=== PATIENT | female | born 1960 | race Caucasian/White ===

== ENCOUNTER 2017-03-26 10:52 | Outpatient (RCR) | payer OTHER ==
[2017-03-19 14:37] LABS: BASOPHILS # (AUTO) 0.1 10^3/uL (0.0-0.1); BASOPHILS % (AUTO) 1 % (0-10); EOSINOPHILS # (AUTO) 0.4 10^3/uL (0.0-0.3); EOSINOPHILS % (AUTO) 3 % (0-10); LYMPHOCYTES % (AUTO) 29 % (12-44); MEAN CORPUSCULAR HEMOGLOBIN 29 PG (25-34); MEAN CORPUSCULAR HGB CONC 33 G/DL (32-36); MEAN CORPUSCULAR VOLUME 88 FL (80-99); MEAN PLATELET VOLUME 9.2 FL (7.4-10.4); MONOCYTES # (AUTO) 0.7 X 10^3 (0.0-1.0); MONOCYTES % (AUTO) 7 % (0-12); NEUTROPHILS # (AUTO) 6.2 X 10^3 (1.8-7.8); NEUTROPHILS % (AUTO) 60 % (42-75); PLATELET COUNT 376 10^3/uL (130-400); RED BLOOD COUNT 4.66 10^6/uL (4.35-5.85); WHITE BLOOD COUNT 10.3 10^3/uL (4.3-11.0)
[2017-03-19 15:27] LABS: ALBUMIN 4.3 G/DL (3.2-4.5); BILIRUBIN,TOTAL 0.3 MG/DL (0.1-1.0); CALCIUM 9.4 MG/DL (8.5-10.1); CREATININE SERUM 0.98 MG/DL (0.60-1.30); POTASSIUM 4.5 MMOL/L (3.6-5.0); TOTAL PROTEIN 7.8 G/DL (6.4-8.2)
[~2017-03-26 10:52] MED LIST: AMLO1CAP31 PO; CITA10TA70 PO; CLAR-19 PO; CPR500T PO; GLYB5TAB6 PO; GLYBURIDE PO; HYDR-3583 PO; HYDR1TAB PO; INSU100C4 SQ; LEVO125T6 PO; LEVO175T3 PO; LEVO200T30 PO; METF-380 PO; METO50TA7 PO; METR500T PO; OMEP40CA36 PO; SULF1TAB35 PO
== END 2017-06-17 | disposition home or self-care (01) ==
LOC: ONC 10:52
PROVIDERS: ATTEND Internal Medicine Hematology & Oncology
DX: Z08 Encounter for follow-up examination after completed treatment for malignant neoplasm (principal); Z85.038 Personal history of other malignant neoplasm of large intestine; E11.9 Type 2 diabetes mellitus without complications; E03.9 Hypothyroidism, unspecified; I10 Essential (primary) hypertension; Z79.899 Other long term (current) drug therapy; Z92.21 Personal history of antineoplastic chemotherapy
CPT/HCPCS: 36415; 80053; 82378; 85025; 99213

== ENCOUNTER → 2017-08-13 | Outpatient (CLI) | payer OTHER ==
--- NOTE | 2017-08-13 17:15 | Diagnostic Imaging Report ---
PROCEDURE: US thyroid. TECHNIQUE: Multiple real-time grayscale images were obtained of the thyroid in various projections. INDICATION: Thyromegaly. FINDINGS: The right thyroid lobe is 2.2 x 0.7 x 0.8 cm. The left lobe is 3.7 x 0.9 0.9 cm. In the left thyroid lobe there is a tiny nodule measuring 0.5 x 0.3 x 0.2 cm, isoechoic with a hypoechoic rim and does not demonstrate internal vasculature with color Doppler. No other nodule is seen. IMPRESSION: Nonspecific tiny left thyroid nodule is seen measuring 5 mm, with no other nodule or dominant mass seen. Dictated by: Dictated on workstation # [id number]
== END ==
LOC: RAD 12:57
PROVIDERS: ATTEND Nurse Practitioner Family
DX: E04.1 Nontoxic single thyroid nodule (principal)
CPT/HCPCS: 76536

== ENCOUNTER → 2017-10-28 | Outpatient (CLI) | payer OTHER ==
--- NOTE | 2017-10-29 11:54 | Diagnostic Imaging Report ---
Bilateral screening mammogram 2D views with tomosynthesis The current study was also evaluated with a Computer Aided Detection (CAD) system. INDICATION: Screening. No current complaints stated on the questionnaire. COMPARISON: 10/27/2016. FINDINGS: The breasts are composed of heterogeneously dense parenchyma which may decrease mammographic sensitivity. Occasional benign-appearing calcifications are seen. Allowing for technique and positional differences, no suspicious change is seen. IMPRESSION: Dense breasts with no definite change. ACR BI-RADS Category 2: Benign findings. Result letter will be mailed to the patient. Note: At least 10% of breast cancer is not imaged by mammography. Dictated by: Dictated on workstation # [id number]
== END ==
LOC: RAD 09:47
PROVIDERS: ATTEND Obstetrics & Gynecology
DX: Z12.31 Encounter for screening mammogram for malignant neoplasm of breast (principal)
CPT/HCPCS: 77067

== ENCOUNTER 2018-03-25 10:14 | Outpatient (RCR) | payer BC, OTHER ==
[2018-03-18 10:40] LABS: BASOPHILS # (AUTO) 0.1 10^3/uL (0.0-0.1); BASOPHILS % (AUTO) 1 % (0-10); EOSINOPHILS # (AUTO) 0.4 10^3/uL (0.0-0.3); EOSINOPHILS % (AUTO) 4 % (0-10); HEMATOCRIT 40 % (35-52); HEMOGLOBIN 13.8 G/DL (11.5-16.0); LYMPHOCYTES # (AUTO) 2.6 X 10^3 (1.0-4.0); LYMPHOCYTES % (AUTO) 28 % (12-44); MEAN CORPUSCULAR HEMOGLOBIN 29 PG (25-34); MEAN CORPUSCULAR HGB CONC 34 G/DL (32-36); MEAN CORPUSCULAR VOLUME 86 FL (80-99); MEAN PLATELET VOLUME 9.5 FL (7.4-10.4); MONOCYTES # (AUTO) 0.8 X 10^3 (0.0-1.0); MONOCYTES % (AUTO) 8 % (0-12); NEUTROPHILS # (AUTO) 5.6 X 10^3 (1.8-7.8); NEUTROPHILS % (AUTO) 60 % (42-75); PLATELET COUNT 351 10^3/uL (130-400); RED BLOOD COUNT 4.72 10^6/uL (4.35-5.85); RED CELL DISTRIBUTION WIDTH 12.7 % (10.0-14.5); WHITE BLOOD COUNT 9.4 10^3/uL (4.3-11.0)
[2018-03-18 11:03] LABS: ALANINE AMINOTRANSFERASE 26 U/L (0-55); ALBUMIN 4.4 GM/DL (3.2-4.5); ALKALINE PHOSPHATASE 93 U/L (40-136); BILIRUBIN,TOTAL 0.4 MG/DL (0.1-1.0); BUN/CREATININE RATIO 25; CALCIUM 9.7 MG/DL (8.5-10.1); CARBON DIOXIDE 24 MMOL/L (21-32); CHLORIDE 104 MMOL/L (98-107); CREATININE SERUM 0.71 MG/DL (0.60-1.30); GFR ESTIMATED > 60; GLUCOSE 116 MG/DL (70-105); POTASSIUM 4.9 MMOL/L (3.6-5.0); SODIUM 140 MMOL/L (135-145); TOTAL PROTEIN 7.7 GM/DL (6.4-8.2)
== END 2018-06-16 | disposition home or self-care (01) ==
LOC: ONC 10:14
PROVIDERS: ATTEND Internal Medicine Hematology & Oncology
DX: Z08 Encounter for follow-up examination after completed treatment for malignant neoplasm (principal); Z85.038 Personal history of other malignant neoplasm of large intestine; E11.9 Type 2 diabetes mellitus without complications; E03.9 Hypothyroidism, unspecified; I10 Essential (primary) hypertension; Z79.899 Other long term (current) drug therapy; Z92.21 Personal history of antineoplastic chemotherapy
CPT/HCPCS: 36415; 80053; 82378; 85025; 99213

== ENCOUNTER → 2018-10-29 | Outpatient (CLI) | payer BC ==
--- NOTE | 2018-10-29 11:10 | Diagnostic Imaging Report ---
Bilateral mammograms. Clinical indication: Screening. Comparison made with prior examination of 10/28/2017 back through 09/13/2012. 3-D tomosynthesis was performed and reviewed. Findings: There are scattered fibroglandular densities bilaterally. There are a few benign type calcifications. There is no dominant mass, spiculated lesion or suspicious calcifications identified. Skin, nipples and axilla are unremarkable. Impression: Category 2 benign ACR BI-RADS Category 2: Benign findings. Result letter will be mailed to the patient. Note: At least 10% of breast cancer is not imaged by mammography. Dictated by: Dictated on workstation # [id number]
== END ==
LOC: RAD 08:13
PROVIDERS: ATTEND Obstetrics & Gynecology
DX: Z12.31 Encounter for screening mammogram for malignant neoplasm of breast (principal)
CPT/HCPCS: 77067

== ENCOUNTER 2019-05-26 15:47 | Outpatient (RCR) | payer BC ==
[2019-03-18 10:24] LABS: BASOPHILS # (AUTO) 0.1 10^3/uL (0.0-0.1); BASOPHILS % (AUTO) 1 % (0-10); EOSINOPHILS # (AUTO) 0.7 10^3/uL (0.0-0.3); EOSINOPHILS % (AUTO) 6 % (0-10); HEMATOCRIT 42 % (35-52); HEMOGLOBIN 14.1 G/DL (11.5-16.0); LYMPHOCYTES # (AUTO) 2.5 X 10^3 (1.0-4.0); LYMPHOCYTES % (AUTO) 22 % (12-44); MEAN CORPUSCULAR HEMOGLOBIN 30 PG (25-34); MEAN CORPUSCULAR HGB CONC 34 G/DL (32-36); MEAN CORPUSCULAR VOLUME 88 FL (80-99); MEAN PLATELET VOLUME 9.4 FL (7.4-10.4); MONOCYTES # (AUTO) 0.8 X 10^3 (0.0-1.0); MONOCYTES % (AUTO) 7 % (0-12); NEUTROPHILS # (AUTO) 7.3 X 10^3 (1.8-7.8); NEUTROPHILS % (AUTO) 64 % (42-75); PLATELET COUNT 375 10^3/uL (130-400); RED CELL DISTRIBUTION WIDTH 12.4 % (10.0-14.5); WHITE BLOOD COUNT 11.3 10^3/uL (4.3-11.0)
[2019-03-18 10:48] LABS: ALANINE AMINOTRANSFERASE 42 U/L (0-55); ALBUMIN 4.5 GM/DL (3.2-4.5); ALKALINE PHOSPHATASE 125 U/L (40-136); BILIRUBIN,TOTAL 0.5 MG/DL (0.1-1.0); BUN/CREATININE RATIO 21; CALCIUM 10.1 MG/DL (8.5-10.1); CARBON DIOXIDE 26 MMOL/L (21-32); CHLORIDE 104 MMOL/L (98-107); GFR ESTIMATED > 60; GLUCOSE 150 MG/DL (70-105); POTASSIUM 5.1 MMOL/L (3.6-5.0); SODIUM 144 MMOL/L (135-145); TOTAL PROTEIN 8.2 GM/DL (6.4-8.2)
== END 2019-06-16 | disposition home or self-care (01) ==
LOC: ONC 15:47
PROVIDERS: ATTEND Internal Medicine Hematology & Oncology
DX: Z08 Encounter for follow-up examination after completed treatment for malignant neoplasm (principal); Z85.038 Personal history of other malignant neoplasm of large intestine; E11.9 Type 2 diabetes mellitus without complications; E03.9 Hypothyroidism, unspecified; I10 Essential (primary) hypertension; Z79.899 Other long term (current) drug therapy; Z92.21 Personal history of antineoplastic chemotherapy
CPT/HCPCS: 36415; 80053; 82378; 85025

== ENCOUNTER → 2019-07-20 | Outpatient (CLI) | payer BC ==
--- NOTE | 2019-07-20 12:23 | Diagnostic Imaging Report ---
PROCEDURE: US Thyroid. TECHNIQUE: Multiple real-time grayscale images were obtained of the thyroid in various projections. INDICATION: Thyroid nodule, followup. COMPARISON: Correlation is made with prior study from 08/13/2017. FINDINGS: Right lobe of the thyroid measures 2.6 x 0.5 x 1.0 cm and the left lobe measures 3.1 x 0.7 x 0.7 cm. Previously noted tiny nodule in left lobe appears stable at 5 mm x 3 mm x 3 mm. No new mass is detected. IMPRESSION: Stable subcentimeter left lobe of thyroid nodule when compared with examination two years earlier. Dictated by: Dictated on workstation # [id number]
== END ==
LOC: RAD 10:29
PROVIDERS: ATTEND Nurse Practitioner Family
DX: E04.1 Nontoxic single thyroid nodule (principal)
CPT/HCPCS: 76536

== ENCOUNTER → 2019-11-18 | Outpatient (CLI) | payer BC ==
--- NOTE | 2019-11-18 10:16 | Diagnostic Imaging Report ---
INDICATION: Routine screening. Comparison is made with prior mammogram 10/29/2018 and 10/28/2017. 2-D and 3-D bilateral screening mammography was performed with CAD. Both breast are heterogeneously dense, limiting the sensitivity of mammography. Benign parenchymal and vascular calcifications are identified bilaterally. No mass or malignant-appearing microcalcifications are seen. Axillae are unremarkable. IMPRESSION: BI-RADS Category 2 No mammographic features suspicious for malignancy are identified. ACR BI-RADS Category 2: Benign findings. Result letter will be mailed to the patient. Note: At least 10% of breast cancer is not imaged by mammography. Dictated by: Dictated on workstation # [id number]
== END ==
LOC: RAD 07:24
PROVIDERS: ATTEND Obstetrics & Gynecology
DX: Z12.31 Encounter for screening mammogram for malignant neoplasm of breast (principal)
CPT/HCPCS: 77067

== ENCOUNTER 2020-03-21 10:48 | Outpatient (RCR) | payer BC ==
[2020-03-15 11:27] LABS: BASOPHILS # (AUTO) 0.1 10^3/uL (0.0-0.1); BASOPHILS % (AUTO) 1 % (0-10); EOSINOPHILS # (AUTO) 0.3 10^3/uL (0.0-0.3); EOSINOPHILS % (AUTO) 3 % (0-10); HEMATOCRIT 43 % (35-52); HEMOGLOBIN 14.4 G/DL (11.5-16.0); LYMPHOCYTES # (AUTO) 2.5 X 10^3 (1.0-4.0); LYMPHOCYTES % (AUTO) 28 % (12-44); MEAN CORPUSCULAR HEMOGLOBIN 30 PG (25-34); MEAN CORPUSCULAR HGB CONC 34 G/DL (32-36); MEAN CORPUSCULAR VOLUME 89 FL (80-99); MEAN PLATELET VOLUME 9.3 FL (7.4-10.4); MONOCYTES # (AUTO) 0.7 X 10^3 (0.0-1.0); MONOCYTES % (AUTO) 7 % (0-12); NEUTROPHILS # (AUTO) 5.7 X 10^3 (1.8-7.8); NEUTROPHILS % (AUTO) 61 % (42-75); PLATELET COUNT 357 10^3/uL (130-400); RED CELL DISTRIBUTION WIDTH 13.1 % (10.0-14.5); WHITE BLOOD COUNT 9.3 10^3/uL (4.3-11.0)
[2020-03-15 11:48] LABS: ALANINE AMINOTRANSFERASE 26 U/L (0-55); ALBUMIN 4.6 GM/DL (3.2-4.5); ALKALINE PHOSPHATASE 91 U/L (40-136); BILIRUBIN,TOTAL 0.5 MG/DL (0.1-1.0); BUN/CREATININE RATIO 20; CALCIUM 10.1 MG/DL (8.5-10.1); CARBON DIOXIDE 22 MMOL/L (21-32); CHLORIDE 101 MMOL/L (98-107); CREATININE SERUM 0.79 MG/DL (0.60-1.30); GFR ESTIMATED > 60; GLUCOSE 123 MG/DL (70-105); POTASSIUM 4.6 MMOL/L (3.6-5.0); SODIUM 139 MMOL/L (135-145); TOTAL PROTEIN 8.1 GM/DL (6.4-8.2)
== END 2020-06-13 | disposition home or self-care (01) ==
LOC: ONC 10:48
PROVIDERS: ATTEND Nurse Practitioner Adult Health
DX: C18.9 Malignant neoplasm of colon, unspecified (principal)
CPT/HCPCS: 80053; 82378; 85025; 99213

== ENCOUNTER 2020-10-05 05:44 | Outpatient (RCR) | payer BC ==
[~2020-10-05] VITALS: Ht 165.1 cm; Wt 73.6 kg
[~2020-10-05 05:44] MED LIST changes: +AMLO1CAP5 PO; +ASPI-999 PO; +ATOR20TA49 PO; +CALC-140 PO; +CALC-250 PO; +DAPA5TAB PO; +GLIM4TAB5 PO; +LEVO150T6 PO; +LEVO5TAB28 PO; +LINA5TAB PO; +METF-399 PO; +METH1TAB69 PO; +MV-M1TAB57 PO; +NF-LT10/20 PO; +OMEP20TA7 PO; +OMG1KC PO
== END 2020-10-05 09:32 | disposition home or self-care (01) ==
LOC: PREOP 05:44
PROVIDERS: ATTEND Surgery
DX: Z01.818 Encounter for other preprocedural examination (principal); Z85.038 Personal history of other malignant neoplasm of large intestine; Z20.828 Contact with and (suspected) exposure to other viral communicable diseases
CPT/HCPCS: 87635

== ENCOUNTER 2020-10-09 10:30 | Day surgery (SDC) | payer BC ==
[~2020-10-09] VITALS: Ht 165.1 cm; Wt 73.6 kg
[2020-10-09 10:40] VITALS: BP 133/96
[2020-10-09] MEDS ORDERED: LACTATED RINGERS 1,000 ML IV STA (10:46)
[2020-10-09] MEDS ORDERED: LACTATED RINGERS 1,000 ML IV ONE (10:47)
--- NOTE | 2020-10-09 10:52 | Progress Note-Pre Operative ---
Pre-Operative Progress Note H&P Reviewed The H&P was reviewed, patient examined and no changes noted. Date Seen by Provider: Oct 09, 2020 Time Seen by Provider: 10:52 Date H&P Reviewed: Oct 09, 2020 Time H&P Reviewed: 10:52 Pre-Operative Diagnosis: hx colon cancer NAM DIAS DO Oct 09, 2020 10:52
[2020-10-09] MEDS ORDERED: MIDAZOLAM 2 MG/2 ML (VERSED) VIAL ONE (11:23)
[2020-10-09] MEDS ORDERED: PROPOFOL INJECTION 50 ML IV ONE (11:23)
[2020-10-09 12:09] VITALS: BP 121/84
--- NOTE | 2020-10-09 12:12 | Progress Note-Post Operative ---
Post-Operative Progess Note Surgeon (s)/Editor Dictionary (s) Surgeon NAM DIAS DO Editor Dictionary: na Pre-Operative Diagnosis hx colon cancer Post-Operative Diagnosis colon polyps Procedure & Operative Findings Date of Procedure 10/09/20 Procedure Performed/Findings colonoscopy c hot bx polypectomy x 4 Anesthesia Type per manager nursing Estimated Blood Loss Estimated blood loss (mL): none Specimens/Packing Specimens Removed cecum, ascending, sigmoid x2 NAM DIAS DO Oct 09, 2020 12:12
--- NOTE | 2020-10-09 12:13 | Discharge Inst-Simple/Standard ---
Discharge Inst-Standard Patient Instructions/Follow Up Plan of Care/Instructions/FU: 2-3 weeks Mikki Activity as Tolerated: Yes Discharge Diet: Regular Diet NAM DIAS DO Oct 09, 2020 12:13
[2020-10-09 12:14] VITALS: BP 114/76
[2020-10-09 12:15] VITALS: BP 114/76
[2020-10-09 12:45] VITALS: BP 129/92
[2020-10-09 12:55] VITALS: BP 129/92
--- NOTE | 2020-10-09 14:49 | Anesthesia-General Post-Op ---
MAC Patient Condition Mental Status/LOC: Same as Preop Cardiovascular: Satisfactory Nausea/Vomiting: Absent Respiratory: Satisfactory Pain: Controlled Complications: Absent Post Op Complications Complications None Follow Up Care/Instructions Patient Instructions None needed. Anesthesiology Discharge Order Discharge Order Patient is doing well, no complaints, stable vital signs, no apparent adverse anesthesia problems. No complications reported per nursing. KASSANDRA VALENCIA CRNA Oct 09, 2020 14:49
--- NOTE | 2020-10-09 17:12 | OPERATIVE REPORT ---
DATE OF SERVICE: 10/09/2020 PREOPERATIVE DIAGNOSIS: History of colon cancer. POSTOPERATIVE DIAGNOSIS: Colon polyps. PROCEDURE PERFORMED: Colonoscopy with hot biopsy polypectomy x4. SURGEON: Nam Kaye DO ANESTHESIA: Per [employer]. ESTIMATED BLOOD LOSS: None. COMPLICATIONS: None. SPECIMENS: Cecum, ascending and sigmoid x2. INDICATIONS: The patient is a 60-year-old female with history of colon cancer. She understands risks and benefits of the procedure and wished to proceed with procedure. Consent was signed in the chart. DESCRIPTION OF PROCEDURE: The patient was taken to the endoscopy suite and placed in the left lateral recumbent position. Timeout was performed. Digital rectal exam was performed. There were no palpable polyps, masses or ulcerations. Scope was inserted in the rectum and advanced all the way to cecum with minimal difficulty. Prep was adequate. Scope was then slowly retracted back. There was a small polyp in the cecum, which hot biopsy polypectomy was performed. Scope was then continuously retracted back with another small polyp present in the ascending colon, which hot biopsy polypectomy was performed. Scope was then continuously retracted back. No polyps, masses or ulcerations were noted within the remainder of the ascending, transverse, descending colon. In the sigmoid colon, only two very small polyps were present in the distal portion, which hot biopsy polypectomies were performed. Scope was then continuously retracted back into the rectum where it was also retroflexed noting no other pathology. Scope was returned to its normal position, slowly withdrawn until completely removed. The anastomosis was also visualized with no evidence of any recurrence. The patient will also need repeat colonoscopy in 5 years, any issues before that be seen at that time. Job ID: [id number] DocumentID: [id number] Dictated Date: 10/09/2020 12:15:23 Rolling Mill Operator Date: 10/09/2020 17:11:25 Dictated By: NAM KAYE DO
== END 2020-10-09 12:55 | disposition home or self-care (01) ==
LOC: ENDO 10:30
PROVIDERS: ATTEND Surgery
DX: D12.5 Benign neoplasm of sigmoid colon (principal); K63.5 Polyp of colon; I10 Essential (primary) hypertension; G47.33 Obstructive sleep apnea (adult) (pediatric); E11.9 Type 2 diabetes mellitus without complications; E03.9 Hypothyroidism, unspecified; K21.9 Gastro-esophageal reflux disease without esophagitis; Z79.4 Long term (current) use of insulin; Z79.899 Other long term (current) drug therapy; Z79.02 Long term (current) use of antithrombotics/antiplatelets; Z79.82 Long term (current) use of aspirin; Z88.0 Allergy status to penicillin; Z88.2 Allergy status to sulfonamides; Z85.038 Personal history of other malignant neoplasm of large intestine; Z80.0 Family history of malignant neoplasm of digestive organs
CPT/HCPCS: 82962; 88305

== ENCOUNTER → 2020-11-22 | Outpatient (CLI) | payer BC ==
--- NOTE | 2020-11-22 10:38 | Diagnostic Imaging Report ---
INDICATION: Routine screening. COMPARISON is made to prior mammograms of 11/18/2019 and 10/29/2018. 2-D and 3-D bilateral screening mammography was performed with CAD. Both breasts are heterogeneously dense, limiting the sensitivity of mammography. There are scattered benign parenchymal and vascular calcifications. No mass or malignant appearing microcalcifications are seen. Axillae are unremarkable. IMPRESSION: BI-RADS Category 2 No mammographic features suspicious for malignancy are identified. Dictated by: Dictated on workstation # [id number]
== END ==
LOC: RAD 08:00
PROVIDERS: ATTEND Obstetrics & Gynecology
DX: Z12.31 Encounter for screening mammogram for malignant neoplasm of breast (principal)
CPT/HCPCS: 77063; 77067

== ENCOUNTER 2021-03-19 10:54 | Outpatient (RCR) | payer BC ==
[2021-03-12 12:23] LABS: BASOPHILS # (AUTO) 0.1 10^3/uL (0.0-0.1); BASOPHILS % (AUTO) 1 % (0-10); EOSINOPHILS # (AUTO) 0.3 10^3/uL (0.0-0.3); EOSINOPHILS % (AUTO) 4 % (0-10); HEMATOCRIT 46 % (35-52); HEMOGLOBIN 14.8 g/dL (11.5-16.0); LYMPHOCYTES # (AUTO) 2.7 10^3/uL (1.0-4.0); LYMPHOCYTES % (AUTO) 28 % (12-44); MEAN CORPUSCULAR HEMOGLOBIN 30 pg (25-34); MEAN CORPUSCULAR HGB CONC 33 g/dL (32-36); MEAN CORPUSCULAR VOLUME 93 fL (80-99); MEAN PLATELET VOLUME 9.4 fL (9.0-12.2); MONOCYTES # (AUTO) 0.8 10^3/uL (0.0-1.0); MONOCYTES % (AUTO) 8 % (0-12); NEUTROPHILS # (AUTO) 5.4 10^3/uL (1.8-7.8); NEUTROPHILS % (AUTO) 57 % (42-75); PLATELET COUNT 326 10^3/uL (130-400); WHITE BLOOD COUNT 9.5 10^3/uL (4.3-11.0)
[2021-03-12 12:41] LABS: ALANINE AMINOTRANSFERASE 28 U/L (0-55); ALBUMIN 4.5 GM/DL (3.2-4.5); ALKALINE PHOSPHATASE 112 U/L (40-136); BILIRUBIN,TOTAL 0.4 MG/DL (0.1-1.0); BUN/CREATININE RATIO 26; CARBON DIOXIDE 27 MMOL/L (21-32); CHLORIDE 103 MMOL/L (98-107); CREATININE SERUM 0.85 MG/DL (0.60-1.30); GFR ESTIMATED > 60; GLUCOSE 142 MG/DL (70-105); POTASSIUM 4.7 MMOL/L (3.6-5.0); SODIUM 140 MMOL/L (135-145); TOTAL PROTEIN 7.8 GM/DL (6.4-8.2)
== END 2021-06-10 | disposition home or self-care (01) ==
LOC: ONC 10:54
PROVIDERS: ATTEND Internal Medicine Hematology & Oncology
DX: C18.7 Malignant neoplasm of sigmoid colon (principal); K21.9 Gastro-esophageal reflux disease without esophagitis; E03.9 Hypothyroidism, unspecified; Z92.21 Personal history of antineoplastic chemotherapy; Z90.49 Acquired absence of other specified parts of digestive tract
CPT/HCPCS: 80053; 82378; 85025; 99213

== ENCOUNTER 2021-10-09 13:31 | Emergency (ER) | payer BC ==
[~2021-10-09] VITALS: Ht 162.5 cm; Wt 75.9 kg
--- NOTE | 2021-10-09 14:06 | Diagnostic Imaging Report ---
INDICATION: Chest pain COMPARISON: 08/02/2010 FINDINGS: Single frontal view of the chest demonstrates normal heart size and pulmonary vascularity. The lungs show somewhat low inspiratory volumes, but are otherwise clear. No large pleural effusion or pneumothorax is seen. The visualized osseous structures show no acute abnormalities. IMPRESSION: 1. No acute cardiopulmonary process. Dictated by: Dictated on workstation # [id number]
[2021-10-09 14:34] LABS: INR 0.9 (0.8-1.4); PROTHROMBIN TIME PATIENT 12.8 SEC (12.2-14.7)
[2021-10-09 14:37] LABS: MAGNESIUM 1.8 MG/DL (1.6-2.4)
--- NOTE | 2021-10-09 15:04 | ED Chest Pain ---
General Chief Complaint: Cardiac/General Problems Stated Complaint: SOA Nursing Triage Note: AMB TO ROOM PATIEINT HAD BEEN SEEN AT [facility] THIS AM FOR PAIN ACROSS THE SHOULDER DOWN BOTH ARMS WITH EXCERTION. NO PAIN SINCE SAT. [facility] DID OP THAT AT HIS HOSPITAL PATIENT TOLD TO COME TO ED BECAUSE TROPONIN ELEVATED. PATIENT DENIES PAIN ON ADMIT. Source: patient, old records Exam Limitations: no limitations History of Present Illness Date Seen by Provider: Oct 09, 2021 Time Seen by Provider: 13:30 Initial Comments This 61 year old woman presents to the ER with complaints of intermittent chest heaviness with pain in the upper back and across the shoulders in her arms last week. The last episode was 4 days ago. Symptoms occurred with exertion. She denies any symptoms now. She presented to [facility]. Labs were obtained which revealed elevated troponin and she was referred to the ER. She denies any prior cardiac problems. She has history of colon cancer resection and DVT after surgery. She has an IVC filter. VS are normal. She has been dually vaccinated for COVID 19. Allergies and Home Medications Allergies Coded Allergies: Sulfa (Sulfonamide Antibiotics) (Unverified Allergy, Mild, 08/02/10) Penicillins (Unverified Allergy, Unknown, 11/22/20) Patient Home Medication List Home Medication List Reviewed: Yes Amlodipine/Benazepril (Lotrel 10-20 mg Capsule) 1 Cap Cap, 1 CAP PO DAILY, (Reported) Entered as Reported by: NIKKI LEE on 10/04/20 1312 Aspirin (Aspirin) 81 Mg Tab.chew, 81 MG PO DAILY, (Reported) Entered as Reported by: NIKKI LEE on 10/04/20 1320 Atorvastatin Calcium (Lipitor) 20 Mg Tablet, 20 MG PO HS, (Reported) Entered as Reported by: NIKKI LEE on 10/04/20 1320 Calcium Carbonate/Vitamin D3 (Calcium + Vitamin D Tablet) 1 Each Tablet, 1 EACH PO DAILY, (Reported) Entered as Reported by: NIKKI LEE on 10/04/20 1320 Cholecalciferol (Vitamin D3) (Vitamin D3) 125 Mcg Tablet, 125 MCG PO DAILY, (Reported) Entered as Reported by: NIKKI LEE on 10/04/20 1320 Dapagliflozin Propanediol (Farxiga) 5 Mg Tablet, 5 MG PO DAILY, (Reported) Entered as Reported by: NIKKI LEE on 10/04/20 1320 Glimepiride (Glimepiride) 4 Mg Tablet, 4 MG PO BID, (Reported) Entered as Reported by: NIKKI LEE on 10/04/20 1320 Levocetirizine Dihydrochloride (Xyzal) 5 Mg Tablet, 5 MG PO HS, (Reported) Entered as Reported by: NIKKI LEE on 10/04/20 1320 Levothyroxine Sodium (Levothyroxine Sodium) 150 Mcg Tablet, 150 MCG PO DAILY, (Reported) Entered as Reported by: NIKKI LEE on 10/04/20 1312 Linagliptin (Tradjenta) 5 Mg Tablet, 5 MG PO DAILY, (Reported) Entered as Reported by: NIKKI LEE on 10/04/20 1320 Metformin HCl (Metformin HCl) 1,000 Mg Tablet, 1,000 MG PO BID, (Reported) Entered as Reported by: NIKKI LEE on 10/04/20 1312 Methyl-B12/l-Mefolate/B6 Phos (n-Okyqau-S0-B12 Tablet) 1 Each Tablet, 1 EACH PO DAILY, (Reported) Entered as Reported by: NIKKI LEE on 10/04/20 1320 Metoprolol Succinate (Metoprolol Succinate) 50 Mg Tab.er.24h, 50 MG PO HS, ( Reported) Entered as Reported by: NIKKI LEE on 10/04/20 1312 Mv-Mn/Folic Acid/Calcium/Vit K (Women's 50 Plus Multivit Tab) 1 Each Tablet, 1 EACH PO DAILY, (Reported) Entered as Reported by: NIKKI LEE on 10/04/20 1320 Early 3 Polyunsat Fatty Acids (Fish Oil 1,000 mg Capsule) 1,000 Mg Cap, 2,000 MG PO DAILY, (Reported) Entered as Reported by: NIKKI LEE on 10/04/20 1320 Omeprazole (Omeprazole) 20 Mg Tablet.dr, 20 MG PO DAILY, (Reported) Entered as Reported by: NIKKI LEE on 10/04/20 1320 Review of Systems Review of Systems Constitutional: no symptoms reported EENTM: No Symptoms Reported Respiratory: See HPI Cardiovascular: See HPI Gastrointestinal: No Symptoms Reported Genitourinary: No Symptoms Reported Musculoskeletal: no symptoms reported Skin: no symptoms reported Psychiatric/Neurological: No Symptoms Reported Endocrine: No Symptoms Reported Hematologic/Lymphatic: No Symptoms Reported Past Dgmzdek-Abplvl-Ljqkye Hx Patient Social History Tobacco Use?: No Use of E-Cig and/or Vaping dev: No Substance use?: No Alcohol Use?: No Immunizations Up To Date PED Vaccines UTD: No First/Initial COVID19 Vaccinat: January COVID19 Vaccination Justin: FEBRUARY COVID19 Vaccine [employer]: JOSH Seasonal Allergies Seasonal Allergies: Yes Past Medical History Surgeries: Yes (COLON RESECTION, VENA CAVA FILTER, PORT PLACED AND REMOVED, DEVIATED SEPTUM) Tubal Ligation Respiratory: Yes Sleep Apnea Currently Using CPAP: Yes Cardiac: Yes Deep Vein Thrombosis, Hypertension Neurological: No ( ) Reproductive Disorders: No Sexually Transmitted Disease: No Genitourinary: No Gastrointestinal: Yes (CA COLON, colon resection) Musculoskeletal: No Endocrine: Yes Hypothyroidsim, Diabetes, Non-Insulin dep HEENT: No Cancer: Yes Colon Did You Recieve Any Treatments: Yes What Type of Treatment Did You: Chemotherapy, Surgical Intervention Psychosocial: No Integumentary: No Blood Disorders: Yes Physical Exam Vital Signs Vital Signs - First Documented 10/09/21 10/09/21 13:31 15:31 Temp 35.7 Pulse 94 Resp 18 B/P (MAP) 147/100 (116) Pulse Ox 97 O2 Delivery Room Air Capillary Refill : Less Than 3 Seconds Height, Weight, BMI Height: 5'4.00" Weight: 174lbs. 6.4oz. 79.432281fh; 28.00 BMI Method:Stated General Appearance: No Apparent Distress, WD/WN HEENT: PERRL/EOMI, Normal ENT Inspection Neck: Normal Inspection; No JVD Respiratory: Chest Non Tender, Lungs Clear, Normal Breath Sounds, No Accessory Muscle Use, No Respiratory Distress Cardiovascular: Regular Rate, Rhythm, No Edema, No Murmur Gastrointestinal: Normal Bowel Sounds, Non Tender, Soft Extremity: Normal Inspection, No Pedal Edema Neurologic/Psychiatric: Alert, Oriented x3, No Motor/Sensory Deficits, Normal Mood/Affect Skin: Normal Color, Warm/Dry Progress/Results/Core Measures Results/Orders Lab Results Laboratory Tests Test 10/09/21 14:09 Range/Units Prothrombin Time 12.8 12.2-14.7 SEC INR Comment 0.9 0.8-1.4 Activated Partial Thromboplast Time 27 24-35 SEC Magnesium Level 1.8 1.6-2.4 MG/DL Myoglobin 23.4 10.0-92.0 NG/ML Troponin I 0.055 H <0.028 NG/ML My Orders Orders - ELMA PAUL MD Magnesium (10/09/21 13:41) Chest 1 View, Ap/Pa Only (10/09/21 13:41) Ekg Tracing (10/09/21 13:41) Myoglobin Serum (10/09/21 13:41) Protime With Inr (10/09/21 13:41) Partial Thromboplastin Time (10/09/21 13:41) Monitor-Rhythm Ecg Trace Only (10/09/21 13:41) Ed Iv/Invasive Line Start (10/09/21 13:41) Troponin I (10/09/21 13:41) Aspirin Chewable Tablet (Baby Aspirin Ch (10/09/21 15:30) Medications Given in ED Current Medications Medications Dose Ordered Sig/Francoise Route Start Time Stop Time Status Last Admin Dose Admin Aspirin 324 mg ONCE ONCE PO 10/09/21 15:30 10/09/21 15:31 DC 10/09/21 15:25 324 MG Vital Signs/I&O 10/09/21 10/09/21 13:31 15:31 Temp 35.7 Pulse 94 89 Resp 18 18 B/P (MAP) 147/100 (116) 133/90 Pulse Ox 97 98 O2 Delivery Room Air Blood Pressure Mean: 116 Progress Progress Note : Progress Note Repeat troponin was trending down. She has experienced no symptoms x [address] Mcdaniel. Appointment made for follow-up. Return precautions reviewed. ASA given. Initial ECG Impression Date: Oct 09, 2021 Initial ECG Impression Time: 13:33 Initial ECG Rate: 92 Initial ECG Rhythm: Normal Sinus Initial ECG Impression: Normal Comment Normal sinus rhythm with no ST elevation or depression. No abnormal intervals or axis deviation. PVC noted. Diagnostic Imaging Diagonstic Imaging: Xray Plain Films/CT/US/NM/MRI: chest Comments NAME: BASHIR HUBBARD REC#: [id number] PT STATUS: DEP ER : 1960 PHYSICIAN: ELMA PAUL MD ADMIT DATE: 10/09/21/ER Signed Date of Exam:10/09/21 CHEST 1 VIEW, AP/PA ONLY INDICATION: Chest pain COMPARISON: 08/02/2010 FINDINGS: Single frontal view of the chest demonstrates normal heart size and pulmonary vascularity. The lungs show somewhat low inspiratory volumes, but are otherwise clear. No large pleural effusion or pneumothorax is seen. The visualized osseous structures show no acute abnormalities. IMPRESSION: 1. No acute cardiopulmonary process. Dictated by: Dictated on workstation # [id number] Dict: 10/09/21 1404 Trans: 10/09/211956 [facility] [id number] Interpreted by: ELIAS RUANO MD Electronically signed by: ELIAS RAUNO MD 10/09/211956 Departure Impression Primary Impression: Chest pain Qualified Codes: R07.9 - Chest pain, unspecified Additional Impression: Elevated troponin Disposition: 01 HOME, SELF-CARE Condition: Stable Departure-Patient Inst. Decision time for Depature: 15:17 Referrals: JAMES ARROYO DO (PCP) Primary Care Physician RANDALL ARROYO DNP (Family) Primary Care Physician ELIOT MCDANIEL MD Patient Instructions: Chest Pain Add. Discharge Instructions: Continue taking aspirin 81 mg daily. Follow-up with Dr. Mcdaniel at his clinic October 17 at 2:00 p.m. Return to the ER if you have episodes of chest pain, shortness of breath, unusual sweating, lightheadedness, or other concerning symptoms. Call with questions or concerns. Avoid strenuous activity until you are seen at the heart clinic. All discharge instructions reviewed with patient and/or family. Voiced understanding. Copy Copies To 1: ELIOT MCDANIEL MD Copies To 2: JAMES ARROYO JOSHUA T MD Oct 09, 2021 15:04
[2021-10-09] MEDS ORDERED: ASPIRIN 81 MG CHEW (CHILDREN'S ASA) PO ONE (15:30)
[2021-10-09 15:31] VITALS: BP 133/90
== END 2021-10-09 15:31 | disposition home or self-care (01) ==
LOC: EDUNIT# 13:31 → ER 13:34
DX: R07.9 Chest pain, unspecified (principal); R77.8 Other specified abnormalities of plasma proteins; G47.30 Sleep apnea, unspecified; I10 Essential (primary) hypertension; E11.9 Type 2 diabetes mellitus without complications; E03.9 Hypothyroidism, unspecified; Z79.84 Long term (current) use of oral hypoglycemic drugs; Z79.890 Hormone replacement therapy; Z79.82 Long term (current) use of aspirin
CPT/HCPCS: 36415; 71045; 83735; 83874; 84484; 85610; 85730; 93041

== ENCOUNTER → 2021-10-09 | Outpatient (CLI) | payer BC ==
[2021-10-09 12:11] LABS: HEMATOCRIT 46 % (35-52); HEMOGLOBIN 15.4 g/dL (11.5-16.0); MEAN CORPUSCULAR HEMOGLOBIN 30 pg (25-34); MEAN CORPUSCULAR HGB CONC 34 g/dL (32-36); MEAN CORPUSCULAR VOLUME 90 fL (80-99); MEAN PLATELET VOLUME 9.1 fL (9.0-12.2); PLATELET COUNT 279 10^3/uL (130-400); WHITE BLOOD COUNT 8.7 10^3/uL (4.3-11.0)
[2021-10-09 12:33] LABS: ALBUMIN 4.4 GM/DL (3.2-4.5); BILIRUBIN,TOTAL 0.5 MG/DL (0.1-1.0); CALCIUM 9.9 MG/DL (8.5-10.1); CREATINE KINASE MB 1.2 NG/ML (<6.6); CREATININE SERUM 0.71 MG/DL (0.60-1.30); POTASSIUM 4.3 MMOL/L (3.6-5.0); TOTAL PROTEIN 7.9 GM/DL (6.4-8.2)
== END ==
LOC: LAB 11:43
PROVIDERS: ATTEND Nurse Practitioner Family
DX: R07.9 Chest pain, unspecified (principal); R06.02 Shortness of breath
CPT/HCPCS: 36415; 80053; 82553; 83874; 84484; 85027

== ENCOUNTER → 2021-10-21 | Outpatient (CLI) | payer BC ==
[~2021-10-21] VITALS: Ht 162 cm; Wt 75.0 kg
[~2021-10-21] MED LIST changes: +CATHETER FLUSH 10 ML SYR IV PRN
[2021-10-21 09:01] VITALS: BP 141/90
--- NOTE | 2021-10-22 08:08 | Cardiology Stress Test Report ---
Stress Test Report Date of Procedure/Referring: Date of Procedure: Oct 21, 2021 PCP Eliot Mcdaniel MD Admitting Physician Daniel Rodriges DO Indications: HTN Baseline Heart Rate: 110 Baseline Blood Pressure: Blood Pressure Systolic: 141 Blood Pressure Diastolic: 90 Vital Signs Date Time Temp Pulse Resp B/P (MAP) Pulse Ox O2 Delivery O2 Flow Rate FiO2 10/21/21 09:01 118 18 141/90 (107) 98 Room Air Baseline Vital Signs Vital Signs Date Time Temp Pulse Resp B/P (MAP) Pulse Ox O2 Delivery O2 Flow Rate FiO2 10/21/21 09:01 118 18 141/90 (107) 98 Room Air Baseline EKG: Baseline EKG: NSR Summary: After explaining the procedure and details to the patient, she signed the consent and was brought to the stress nuclear laboratory. Patient exercised on standard Colin protocol, EKG, heart rate and blood pressure were monitored continuously, resting and stress doses of radio tracer were injected, imaging was acquired and reviewed in the short axis, horizontal long axis and vertical long axis views Patient was able to exercise for a total of 3 minutes on Colin protocol, METs 4.6 Maximum heart rate 151 Maximum blood pressure 159/87 Stress EKG, frequent PVCs, 3 beats nonsustained ventricular tachycardia, nondiagnostic EKG changes Recovery EKG, Return to baseline TID: 1.26 SSS: 13 SDS: 5 EF: 68 Conclusion: 1. Poor exercise tolerance for a total of 3 minutes on standard Colin protocol, 4.6 METS achieving 93% of maximal expected heart rate 2. Baseline sinus tachycardia with appropriate heart rate response to exercise, had occasional PVCs and short 3 beats nonsustained ventricular tachycardia during exercise 3. Nondiagnostic EKG changes with exercise return to baseline during recovery 4. Reversible ischemia involving the inferior wall and inferolateral wall and inferoseptum 5. Transient ischemic dilatation 1.26 6. Normal left ventricular size, EF 68% ELIOT MCDANIEL MD Oct 22, 2021 08:08
== END ==
LOC: CARD 07:45
PROVIDERS: ATTEND Internal Medicine Cardiovascular Disease
DX: I35.8 Other nonrheumatic aortic valve disorders (principal); I10 Essential (primary) hypertension
CPT/HCPCS: 78452; 93017; 93306; A9502

== ENCOUNTER 2021-10-30 14:00 | Day surgery (SDC) | payer BC ==
[~2021-10-30] VITALS: Ht 162.6 cm; Wt 76.2 kg
[2021-10-30] VITALS (12 sets, daily range): BP systolic 113–140; BP diastolic 77–100
[2021-10-30 12:33] LABS: PROTHROMBIN TIME PATIENT 13.2 SEC (12.2-14.7)
--- NOTE | 2021-10-30 12:33 | Diagnostic Imaging Report ---
EXAMINATION: Chest 1 view HISTORY: CP, ABNORMAL STRESS TEST, ELEVATED TRIP, HTN, HLP, DM COMPARISON: 10/09/2021 FINDINGS: Heart size and pulmonary vasculature are normal. The lungs are clear without consolidation, pleural effusion, or pneumothorax. The osseous structures are intact. IMPRESSION: 1. No acute radiographic abnormality in the chest. Dictated by: Dictated on workstation # [id number]
[2021-10-30 12:44] LABS: ALANINE AMINOTRANSFERASE 28 U/L (0-55); ALBUMIN 4.6 GM/DL (3.2-4.5); ALKALINE PHOSPHATASE 102 U/L (40-136); BILIRUBIN,TOTAL 0.8 MG/DL (0.1-1.0); BUN/CREATININE RATIO 19; CALCIUM 9.8 MG/DL (8.5-10.1); CARBON DIOXIDE 21 MMOL/L (21-32); CHLORIDE 102 MMOL/L (98-107); CHOLESTEROL 173 MG/DL (< 200); CREATININE SERUM 1.08 MG/DL (0.60-1.30); GFR ESTIMATED 52; GLUCOSE 227 MG/DL (70-105); HDL CHOLESTEROL 48 MG/DL (40-60); POTASSIUM 3.9 MMOL/L (3.6-5.0); SODIUM 137 MMOL/L (135-145); TOTAL PROTEIN 8.2 GM/DL (6.4-8.2); TRIGLYCERIDES 162 MG/DL (<150); VLDL CHOLESTEROL 32 MG/DL (5-40)
[~2021-10-30 14:00] MED LIST changes: +ASCO500T17 PO; +CALC-823 PO; -CATHETER FLUSH 10 ML SYR IV PRN; +HEParin (CATH LAB) 2,000 ML IV ONE; +HEParin 1000 UNIT/ML (10ML VIAL) FOR BOLUS ONE; +LIDOCAINE 1% INJ 20 ML 20 ML VIAL ONE; +MAGN400T7 PO; +MIDAZOLAM 5 MG/5 ML (VERSED) VIAL ONE; +NITRO DRIP 25000 MCG/D5W 250 ML IV ONE; +NS IV 1000 ML 1,000 ML IV SCH; +NS IV 1000 ML 1,000 ML ONE; +SITA100T12 PO; +VERAPAMIL 5 MG/2 ML (CALAN) VIAL IV ONE; +ZINC50TA51 PO; +fentaNYL INJ 100 MCG/2 ML AMP ONE
[2021-10-30 14:26] LABS: BASOPHILS # (AUTO) 0.1 10^3/uL (0.0-0.1); BASOPHILS % (AUTO) 1 % (0-10); EOSINOPHILS # (AUTO) 0.2 10^3/uL (0.0-0.3); EOSINOPHILS % (AUTO) 2 % (0-10); HEMATOCRIT 46 % (35-52); HEMOGLOBIN 15.5 g/dL (11.5-16.0); LYMPHOCYTES # (AUTO) 1.2 10^3/uL (1.0-4.0); LYMPHOCYTES % (AUTO) 10 % (12-44); MEAN CORPUSCULAR HEMOGLOBIN 30 pg (25-34); MEAN CORPUSCULAR HGB CONC 33 g/dL (32-36); MEAN CORPUSCULAR VOLUME 91 fL (80-99); MEAN PLATELET VOLUME 9.6 fL (9.0-12.2); MONOCYTES # (AUTO) 0.8 10^3/uL (0.0-1.0); MONOCYTES % (AUTO) 7 % (0-12); NEUTROPHILS # (AUTO) 9.6 10^3/uL (1.8-7.8); NEUTROPHILS % (AUTO) 80 % (42-75); PLATELET COUNT 330 10^3/uL (130-400); WHITE BLOOD COUNT 11.9 10^3/uL (4.3-11.0)
[2021-10-30] MEDS ORDERED: NS IV 1000 ML 1,000 ML IV SCH (15:00)
--- NOTE | 2021-10-30 15:07 | Cardiac Cath Report ---
Cardiac Cath Report Physician (s)/Supplier Diversity Director (s) Physician ELIOT BRUNO MD Pre-Procedure Diagnosis Pre-Procedure Diagnosis: Coronary artery disease Post-Procedure Note Procedure Start Date: Oct 30, 2021 Procedure Start Time: 14:50 Name of Procedure: Left heart catheterization Left ventriculogram Aortic arch angiogram Findings/Procedure Note PROCEDURE NOTE: 61-year-old lady with history of diabetes mellitus, hypertension hyperlipidemia, has been having chest pain, had an abnormal stress test with short nonsustained ventricular tachycardia and significant ischemia on SPECT images, scheduled for cardiac catheterization possible PTCA. After explaining the procedure to the patient, all pros and cons were explained, all questions were answered. The patient signed the consent and then she was placed on the cardiac catheterization laboratory. Groin was prepped SL fashion local anesthesia was used. Sheath placed in the right radial artery, [place] catheter was advanced to the left ventricular cavity, pressure was measured, left ventriculogram was done, pullback LV to aorta was done, engaged the right and left coronary system, angiogram was done. Pulled back to the aortic arch, arch angiogram was done. At the end of the procedure the sheath was removed. Vascular band was deployed FINDINGS: Hemodynamics LV 106/13, end-diastolic pressure of 13 Aorta 108/76 mean of 89 ANATOMY: Left Main has mild disease nonobstructive disease Left Anterior Descending has severe stenosis at the ostium and proximal portion, occluded at the mid LAD receiving collaterals from the right ventricular branch of the right coronary artery Left Circumflex is large artery with ulcerated plaque at the midportion and severe stenosis Right Coronary Artery is large dominant artery, totally occluded at the midportion receiving collaterals from the left system LV Gram was done showing normal left ventricular size with preserved contractility ejection fraction 60% Aorta evaluation was done with aortic arch angiogram showing no dissection or aneurysm, tortuous right brachiocephalic artery, left subclavian and left carotid artery CONCLUSION: 1. Severe multivessel coronary artery disease with total occlusion of the mid LAD and mid right coronary artery. The LAD is receiving collaterals from the right system and the right coronary artery and right PDA are receiving collaterals from the left system 2. Severe stenosis in the mid circumflex artery with calcified plaque. This is the only artery that is patent in her coronary system 3. Preserved left ventricular systolic function with estimated ejection fracti on 60% 4. Normal aortic arch and great vessels of the neck DISCUSSION AND RECOMMENDATION: Patient will be consulted to be transferred for evaluation for urgent bypass surgery HOSPITAL COURSE: Patient was hospitalized and arrangement for Transfer for bypass surgery FINAL DIAGNOSIS Coronary Artery Disease Hypertension Hyperlipidemia Diabetes Mellitus Anesthesia Type: Conscious Sedation Estimated blood loss (mL): 15 ml Contrast Amount: 50 ml Total Radiation Dose: 442 mGy Post-Procedure Diagnosis Post-operative diagnosis: Chest pain Coronary artery disease Hypertension Hyperlipidemia ELIOT BRUNO MD Oct 30, 2021 15:07
[2021-10-30] MEDS ORDERED: LORATADINE (CLARITIN) 10 MG TAB PO SCH (21:00)
[2021-10-30] MEDS ORDERED: meTOproloL SUCCINATE 50 MG (TOPROL XL) TAB PO SCH (21:00)
[2021-10-30] MEDS ORDERED: GLIMEPIRIDE 4 MG (AMARYL) TAB PO SCH (21:00)
[2021-10-31] MEDS ORDERED: PANTOPRAZOLE 20 MG TABLET (PROTONIX) PO SCH (09:00)
[2021-10-31] MEDS ORDERED: ASPIRIN 81 MG CHEW (CHILDREN'S ASA) PO SCH (09:00)
[2021-10-31] MEDS ORDERED: lisINopril 20 MG (PRINIVIL) TABLET PO SCH (09:00)
[2021-10-31] MEDS ORDERED: amLODIPine 10 MG (NORVASC) TAB PO SCH (09:00)
[2021-10-31] MEDS ORDERED: OMEGA 3 (FISH OIL) 1000 MG CAP PO SCH (09:00)
[2021-10-31] MEDS ORDERED: MAGNESIUM OXIDE (MAG-OX)400 MG TAB PO SCH (09:00)
[2021-10-31] MEDS ORDERED: ASCORBIC ACID (VIT C) 500 MG TABLET PO SCH (09:00)
[2021-10-31] MEDS ORDERED: LEVOTHYROXINE 150 MCG (LEVOTHROID) TAB PO SCH (09:00)
[2021-10-31] MEDS ORDERED: NON-FORMULARY MEDICATION 1 EA EA (Dapagliflozin Propanediol (Farxiga) 5 MG) PO SCH (09:00)
[2021-10-31] MEDS ORDERED: VITAMIN D3 125 MCG (5,000 UNITS) CAPSULE PO SCH (09:00)
[2021-10-31] MEDS ORDERED: CALCIUM CARBONATE 500 MG (TUMS) TAB.CHEW PO SCH (09:00)
== END 2021-10-30 22:45 | disposition short-term general hospital (02) ==
LOC: CATH 14:00 → CSD 15:20 → CATH 22:45
PROVIDERS: ATTEND Internal Medicine Cardiovascular Disease
DX: I25.10 Atherosclerotic heart disease of native coronary artery without angina pectoris (principal); I10 Essential (primary) hypertension; E11.9 Type 2 diabetes mellitus without complications; E78.5 Hyperlipidemia, unspecified; E03.9 Hypothyroidism, unspecified; K21.9 Gastro-esophageal reflux disease without esophagitis; R07.9 Chest pain, unspecified; Z88.0 Allergy status to penicillin; Z86.711 Personal history of pulmonary embolism; Z86.718 Personal history of other venous thrombosis and embolism; Z79.890 Hormone replacement therapy; Z79.899 Other long term (current) drug therapy; Z79.82 Long term (current) use of aspirin; Z79.84 Long term (current) use of oral hypoglycemic drugs; Z79.4 Long term (current) use of insulin
CPT/HCPCS: 36221; 71045; 80053; 80061; 82947; 85025; 85610; 85730; 87081; 93458; C1894; 36415

== ENCOUNTER → 2021-11-13 | Outpatient (CLI) | payer BC ==
[~2021-11-13] MED LIST changes: -HEParin (CATH LAB) 2,000 ML IV ONE; -HEParin 1000 UNIT/ML (10ML VIAL) FOR BOLUS ONE; -LIDOCAINE 1% INJ 20 ML 20 ML VIAL ONE; -MIDAZOLAM 5 MG/5 ML (VERSED) VIAL ONE; -NITRO DRIP 25000 MCG/D5W 250 ML IV ONE; -NS IV 1000 ML 1,000 ML IV SCH; -NS IV 1000 ML 1,000 ML ONE; -VERAPAMIL 5 MG/2 ML (CALAN) VIAL IV ONE; -fentaNYL INJ 100 MCG/2 ML AMP ONE
--- NOTE | 2021-11-13 14:50 | Diagnostic Imaging Report ---
EXAMINATION: Chest 2 view HISTORY: CAD S/P CABG COMPARISON: None available. FINDINGS: Heart size and pulmonary vasculature are normal. Surgical changes from median sternotomy and CABG. The lungs are clear without consolidation, pleural effusion, or pneumothorax. The osseous structures are intact. IMPRESSION: 1. No acute radiographic abnormality in the chest. Dictated by: Dictated on workstation # [id number]
== END ==
LOC: RAD 14:14
PROVIDERS: ATTEND Nurse Practitioner
DX: I25.810 Atherosclerosis of coronary artery bypass graft(s) without angina pectoris (principal)
CPT/HCPCS: 71046

== ENCOUNTER → 2021-11-18 | Outpatient (CLI) | payer BC ==
[2021-11-18 12:02] LABS: BASOPHILS # (AUTO) 0.2 10^3/uL (0.0-0.1); BASOPHILS % (AUTO) 2 % (0-10); EOSINOPHILS # (AUTO) 1.6 10^3/uL (0.0-0.3); EOSINOPHILS % (AUTO) 15 % (0-10); HEMATOCRIT 35 % (35-52); LYMPHOCYTES # (AUTO) 1.8 10^3/uL (1.0-4.0); LYMPHOCYTES % (AUTO) 17 % (12-44); MEAN CORPUSCULAR HEMOGLOBIN 30 pg (25-34); MEAN CORPUSCULAR HGB CONC 32 g/dL (32-36); MEAN CORPUSCULAR VOLUME 93 fL (80-99); MEAN PLATELET VOLUME 8.7 fL (9.0-12.2); MONOCYTES # (AUTO) 0.9 10^3/uL (0.0-1.0); MONOCYTES % (AUTO) 9 % (0-12); NEUTROPHILS # (AUTO) 6.1 10^3/uL (1.8-7.8); NEUTROPHILS % (AUTO) 56 % (42-75); PLATELET COUNT 531 10^3/uL (130-400); WHITE BLOOD COUNT 10.9 10^3/uL (4.3-11.0)
[2021-11-18 12:32] LABS: BAND NEUTROPHILS 2 %; BASOPHILS % (MANUAL) 1 %; EOSINOPHILS % (MANUAL) 7 %; LYMPHOCYTES % (MANUAL) 19 %; MONOCYTES % (MANUAL) 8 %; NEUTROPHILS % (MANUAL) 63 %
[2021-11-18 12:33] LABS: ANISOCYTOSIS SLIGHT; SPHEROCYTES SLIGHT
== END ==
LOC: LAB 11:38
PROVIDERS: ATTEND Nurse Practitioner
DX: I25.810 Atherosclerosis of coronary artery bypass graft(s) without angina pectoris (principal)
CPT/HCPCS: 36415; 85007; 85027

== ENCOUNTER → 2022-02-18 | Outpatient (CLI) | payer BC ==
[2022-02-18 08:55] LABS: ALBUMIN 4.2 GM/DL (3.2-4.5)
[2022-02-18 08:58] LABS: TOTAL PROTEIN 7.2 GM/DL (6.4-8.2)
[2022-02-18 09:00] LABS: BILIRUBIN,TOTAL 0.4 MG/DL (0.1-1.0)
[2022-02-18 09:01] LABS: CREATININE SERUM 0.88 MG/DL (0.60-1.30)
== END ==
LOC: LAB 08:19
PROVIDERS: ATTEND Internal Medicine Cardiovascular Disease
DX: E78.2 Mixed hyperlipidemia (principal)
CPT/HCPCS: 36415; 80053; 80061

== ENCOUNTER → 2022-04-02 | Outpatient (CLI) | payer BC ==
[~2022-04-02] MED LIST changes: +OMEP20TA56 PO; -OMEP20TA7 PO
== END ==
LOC: RAD 09:45
PROVIDERS: ATTEND Obstetrics & Gynecology
DX: Z12.31 Encounter for screening mammogram for malignant neoplasm of breast (principal)
CPT/HCPCS: 77063; 77067

== ENCOUNTER 2022-05-14 14:36 | Outpatient (RCR) | payer BC | END 2022-05-15 | disposition home or self-care (01) | LOC: CR3 14:36 | PROVIDERS: ATTEND Internal Medicine Cardiovascular Disease | DX: Z29.8 Encounter for other specified prophylactic measures (principal) ==

== ENCOUNTER → 2022-06-12 | Outpatient (CLI) | payer BC ==
[~2022-06-12] VITALS: Ht 162.6 cm; Wt 66.4 kg
[~2022-06-12] MED LIST changes: +ACETAMINOPHEN 500 MG TAB (TYLENOL) PO PRN; +BEBTELOVIMAB 175 MG/2 ML VIAL IV ONE; +EPINEPHrine INJECTION 1 MG/ML AMP IM PRN; -METH1TAB69 PO; +ONDANSETRON 4 MG/2 ML (SDV) Z0FRAN IV PRN; +[UNRECOGNIZED DRUG - CODE] PO; +diphenhydrAMINE 50 MG/ML INJ (BENADRYL) IV PRN
[2022-06-12 09:30] VITALS: BP 133/83
[2022-06-12 10:40] VITALS: BP 117/79
== END ==
LOC: INFUSION 09:14
PROVIDERS: ATTEND Nurse Practitioner Family
DX: U07.1 COVID-19 (principal)

== ENCOUNTER 2022-06-18 15:51 | Outpatient (RCR) | payer BC ==
[~2022-06-18 15:51] MED LIST changes: -ACETAMINOPHEN 500 MG TAB (TYLENOL) PO PRN; -BEBTELOVIMAB 175 MG/2 ML VIAL IV ONE; -EPINEPHrine INJECTION 1 MG/ML AMP IM PRN; -ONDANSETRON 4 MG/2 ML (SDV) Z0FRAN IV PRN; -diphenhydrAMINE 50 MG/ML INJ (BENADRYL) IV PRN
== END 2022-07-15 | disposition home or self-care (01) ==
LOC: CR3 15:51
PROVIDERS: ATTEND Internal Medicine Cardiovascular Disease
DX: Z29.8 Encounter for other specified prophylactic measures (principal)

== ENCOUNTER → 2022-11-25 | Outpatient (CLI) | payer BC | LOC: CARD 08:15 | PROVIDERS: ATTEND Physician Assistant | DX: I11.0 Hypertensive heart disease with heart failure (principal) | CPT/HCPCS: 93306 ==

== ENCOUNTER → 2022-12-24 | Outpatient (CLI) | payer BC ==
[~2022-12-24] VITALS: Ht 162 cm; Wt 70.0 kg
[~2022-12-24] MED LIST changes: +CATHETER FLUSH 10 ML SYR IVP PRN
[2022-12-24 08:52] VITALS: BP 134/80
== END ==
LOC: CARD 07:21
PROVIDERS: ATTEND Physician Assistant
DX: I10 Essential (primary) hypertension (principal)
CPT/HCPCS: 78452; 93017; A9502

== ENCOUNTER 2023-05-02 19:04 | Emergency (ER) | payer BC ==
[~2023-05-02] VITALS: Ht 162 cm; Wt 65.7 kg
[~2023-05-02 19:04] MED LIST changes: -CATHETER FLUSH 10 ML SYR IVP PRN; +[UNRECOGNIZED DRUG - CODE] PO; -[UNRECOGNIZED DRUG - CODE] PO
[2023-05-02] MEDS ORDERED: NS IV 1000 ML 1,000 ML IV STA (19:30)
[2023-05-02 19:40] LABS: BASOPHILS # (AUTO) 0.1 10^3/uL (0.0-0.1); BASOPHILS % (AUTO) 1 % (0-10); EOSINOPHILS # (AUTO) 0.4 10^3/uL (0.0-0.3); EOSINOPHILS % (AUTO) 2 % (0-10); HEMATOCRIT 43 % (35-52); HEMOGLOBIN 14.2 g/dL (11.5-16.0); LYMPHOCYTES # (AUTO) 1.3 10^3/uL (1.0-4.0); LYMPHOCYTES % (AUTO) 6 % (12-44); MEAN CORPUSCULAR HEMOGLOBIN 28 pg (25-34); MEAN CORPUSCULAR HGB CONC 33 g/dL (32-36); MEAN CORPUSCULAR VOLUME 84 fL (80-99); MEAN PLATELET VOLUME 9.2 fL (9.0-12.2); MONOCYTES # (AUTO) 1.4 10^3/uL (0.0-1.0); MONOCYTES % (AUTO) 6 % (0-12); NEUTROPHILS # (AUTO) 18.6 10^3/uL (1.8-7.8); NEUTROPHILS % (AUTO) 85 % (42-75); PLATELET COUNT 403 10^3/uL (130-400); WHITE BLOOD COUNT 21.8 10^3/uL (4.3-11.0)
[2023-05-02 19:43] LABS: ALBUMIN 4.7 GM/DL (3.2-4.5)
[2023-05-02 19:44] LABS: CHLORIDE 107 MMOL/L (98-107); SODIUM 143 MMOL/L (135-145)
--- NOTE | 2023-05-02 19:44 | ED General ---
General Chief Complaint: General Problems/Pain Stated Complaint: WEAKNESS/DIARHEA Nursing Triage Note: Patient ambulatory to room 07, daughter at bedside, w c/o weakness, no energy started yesterday. Diarrhea the last couple days 10x today. Patient states she lost her 15 days ago and her kids don't think she's eating or drinking enough. Source of Information: Patient Exam Limitations: No Limitations History of Present Illness Date Seen by Provider: May 02, 2023 Time Seen by Provider: 19:44 Initial Comments This is a 62 yo female to ER with c/o weakness, fatigue, and diarrhea. Spouse from pancreatic cancer 15 days ago. Has not been eating or drinking well. Reports loose brown diarrhea the past couple days. Generalized abdominal pain. No recent antibiotic use, travel, new foods. No fever, chills, nausea, vomiting, dysuria, or hematuria. Allergies and Home Medications Allergies Coded Allergies: Sulfa (Sulfonamide Antibiotics) (Unverified Allergy, Mild, 08/02/10) Penicillins (Unverified Allergy, Unknown, 11/22/20) Patient Home Medication List Home Medication List Reviewed: Yes Amlodipine/Benazepril (Lotrel 10-20 mg Capsule) 1 Cap Cap, 1 CAP PO DAILY, (Reported) Entered as Reported by: NIKKI LEE on 10/04/20 1312 Ascorbic Acid (Vitamin C) 500 Mg Tablet, 500 MG PO DAILY, (Reported) Entered as Reported by: ZAN ALEXIS on 10/30/21 1318 Aspirin (Aspirin) 81 Mg Tab.chew, 81 MG PO DAILY, (Reported) Entered as Reported by: NIKKI LEE on 10/04/20 1320 Atorvastatin Calcium (Lipitor) 20 Mg Tablet, 20 MG PO HS, (Reported) Entered as Reported by: NIKKI LEE on 10/04/20 1320 Calcium Carbonate (Calcium) 500 Mg Tablet, 500 MG PO DAILY, (Reported) Entered as Reported by: ZAN ALEXIS on 10/30/21 1317 Cholecalciferol (Vitamin D3) (Vitamin D3) 125 Mcg Tablet, 125 MCG PO DAILY, (Reported) Entered as Reported by: NIKKI LEE on 10/04/20 1320 Dapagliflozin Propanediol (Farxiga) 5 Mg Tablet, 5 MG PO DAILY, (Reported) Entered as Reported by: NIKKI LEE on 10/04/20 1320 Glimepiride (Glimepiride) 4 Mg Tablet, 4 MG PO BID, (Reported) Entered as Reported by: NIKKI LEE on 10/04/20 1320 Levocetirizine Dihydrochloride (Xyzal) 5 Mg Tablet, 5 MG PO HS, (Reported) Entered as Reported by: NIKKI LEE on 10/04/20 1320 Levothyroxine Sodium (Levothyroxine Sodium) 150 Mcg Tablet, 150 MCG PO DAILY, (Reported) Entered as Reported by: NIKKI LEE on 10/04/20 1312 Magnesium Oxide (Magnesium Oxide) 400 Mg Tablet, 400 MG PO DAILY, (Reported) Entered as Reported by: ZAN ALEXIS on 10/30/21 1319 Metformin HCl (Metformin HCl) 1,000 Mg Tablet, 1,000 MG PO BID, (Reported) Entered as Reported by: NIKKI LEE on 10/04/20 1312 Methyl-B12/l-Mefolate/B6 Phos (x-Keevpp-Z5-B12 Tablet) 1 Each Tablet, 1 EACH PO DAILY, (Reported) Entered as Reported by: NIKKI LEE on 10/04/20 1320 Metoprolol Succinate (Metoprolol Succinate) 50 Mg Tab.er.24h, 50 MG PO HS, (Reported) Entered as Reported by: NIKKI LEE on 10/04/20 1312 [place] 3 Polyunsat Fatty Acids (Fish Oil 1,000 mg Capsule) 1,000 Mg Cap, 2,000 MG PO DAILY, (Reported) Entered as Reported by: NIKKI LEE on 10/04/20 1320 Omeprazole (Omeprazole) 20 Mg Tablet.dr, 20 MG PO DAILY, (Reported) Entered as Reported by: NIKKI LEE on 10/04/20 1320 Sitagliptin Phosphate (Januvia) 100 Mg Tablet, 100 MG PO DAILY, (Reported) Entered as Reported by: ZAN ALEXIS on 10/30/21 1316 Zinc Amino Acid Chelate (Zinc) 50 Mg Tablet, 50 MG PO DAILY, (Reported) Entered as Reported by: ZAN ALEXIS on 10/30/21 1318 Review of Systems Review of Systems Constitutional: see HPI Past Mrnuwtl-[id number]-[id number] Hx Patient Social History Tobacco Use?: No Substance use?: No Alcohol Use?: No Immunizations Up To Date PED Vaccines UTD: No First/Initial COVID19 Vaccinat: unk Second COVID19 Vaccination Justin: FEBRUARY COVID19 Vaccine Receiving Barn Custodian: unk Seasonal Allergies Seasonal Allergies: Yes Past Medical History Surgeries: Yes (COLON RESECTION, VENA CAVA FILTER, PORT PLACED AND REMOVED, DEVIATED SEPTUM) Tubal Ligation Respiratory: Yes Sleep Apnea Currently Using CPAP: Yes Cardiac: Yes Deep Vein Thrombosis, Hypertension Neurological: No ( ) Reproductive Disorders: No Sexually Transmitted Disease: No Genitourinary: No Gastrointestinal: Yes (CA COLON, colon resection) Musculoskeletal: No Endocrine: Yes Hypothyroidsim, Diabetes, Non-Insulin dep HEENT: No Cancer: Yes Colon Did You Recieve Any Treatments: Yes What Type of Treatment Did You: Chemotherapy, Surgical Intervention Psychosocial: No Integumentary: No Blood Disorders: Yes Physical Exam Vital Signs Vital Signs - First Documented 05/02/23 19:10 Temp 37.6 Pulse 96 Resp 16 B/P (MAP) 81/69 (73) Pulse Ox 98 O2 Delivery Room Air Capillary Refill : Less Than 3 Seconds Height, Weight, BMI Height: 5'4.00" Weight: 174lbs. 6.4oz. 79.514891ut; 25.00 BMI Method:Stated General Appearance: No Apparent Distress, WD/WN Eyes: Bilateral Eye Normal Inspection, Bilateral Eye PERRL, Bilateral Eye EOMI HEENT: PERRL/EOMI, Normal ENT Inspection Neck: Normal Inspection, Supple Respiratory: Lungs Clear, Normal Breath Sounds, No Accessory Muscle Use Cardiovascular: Regular Rate, Rhythm, No Edema, Normal Peripheral Pulses Gastrointestinal: Normal Bowel Sounds, Soft; No Guarding, No Rebound; Tenderness (generalized ) Extremity: Normal Capillary Refill, Normal Inspection Neurologic/Psychiatric: Alert, Oriented x3, No Motor/Sensory Deficits, Normal Mood/Affect Skin: Normal Color, Warm/Dry Focused Exam Lactate Level 05/02/23 20:29: Lactic Acid Level 1.56 Lactic Acid Level Laboratory Tests Test 05/02/23 20:29 Lactic Acid Level 1.56 MMOL/L (0.50-2.00) Progress/Results/Core Measures Suspected Sepsis SIRS Temperature: Pulse: 96 Respiratory Rate: 16 Laboratory Tests 05/02/23 19:15: White Blood Count 21.8H Blood Pressure 81 /69 Mean: 73 05/02/23 20:29: Lactic Acid Level 1.56 Laboratory Tests 05/02/23 19:15: Creatinine 1.29, Platelet Count 403H, Total Bilirubin 0.6 Results/Orders Lab Results Laboratory Tests Test 05/02/23 19:15 05/02/23 20:17 05/02/23 20:29 Range/Units White Blood Count 21.8 H 4.3-11.0 10^3/uL Red Blood Count 5.13 H 3.80-5.11 10^6/uL Hemoglobin 14.2 11.5-16.0 g/dL Hematocrit 43 35-52 % Mean Corpuscular Volume 84 80-99 fL Mean Corpuscular Hemoglobin 28 25-34 pg Mean Corpuscular Hemoglobin Concent 33 32-36 g/dL Red Cell Distribution Width 14.1 10.0-14.5 % Platelet Count 403 H 130-400 10^3/uL Mean Platelet Volume 9.2 9.0-12.2 fL Immature Granulocyte % (Auto) 1 % Neutrophils (%) (Auto) 85 H 42-75 % Lymphocytes (%) (Auto) 6 L 12-44 % Monocytes (%) (Auto) 6 0-12 % Eosinophils (%) (Auto) 2 0-10 % Basophils (%) (Auto) 1 0-10 % Neutrophils # (Auto) 18.6 H 1.8-7.8 10^3/uL Lymphocytes # (Auto) 1.3 1.0-4.0 10^3/uL Monocytes # (Auto) 1.4 H 0.0-1.0 10^3/uL Eosinophils # (Auto) 0.4 H 0.0-0.3 10^3/uL Basophils # (Auto) 0.1 0.0-0.1 10^3/uL Immature Granulocyte # (Auto) 0.1 0.0-0.1 10^3/uL Neutrophils % (Manual) 69 % Lymphocytes % (Manual) 8 % Monocytes % (Manual) 5 % Eosinophils % (Manual) 2 % Band Neutrophils 16 % Platelet Estimate HIGH NORMAL Clumped Platelets OCCASIONAL Poikilocytosis SLIGHT [place] Cells SLIGHT Elliptocytes SLIGHT Sodium Level 143 135-145 MMOL/L Potassium Level 4.0 3.6-5.0 MMOL/L Chloride Level 107 98-107 MMOL/L Carbon Dioxide Level 21 21-32 MMOL/L Anion Gap 15 H 5-14 MMOL/L Blood Urea Nitrogen 22 H 7-18 MG/DL Creatinine 1.29 0.60-1.30 MG/DL Estimat Glomerular Filtration Rate 48 BUN/Creatinine Ratio 17 Glucose Level 161 H 70-105 MG/DL Calcium Level 10.3 H 8.5-10.1 MG/DL Corrected Calcium 8.5-10.1 MG/DL Total Bilirubin 0.6 0.1-1.0 MG/DL Aspartate Amino Transf (AST/SGOT) 24 5-34 U/L Alanine Aminotransferase (ALT/SGPT) 26 0-55 U/L Alkaline Phosphatase 80 40-136 U/L Total Protein 7.8 6.4-8.2 GM/DL Albumin 4.7 H 3.2-4.5 GM/DL Urine Color YELLOW Urine Clarity CLEAR Urine pH 6.0 5-9 Urine Specific [place] 1.010 L 1.016-1.022 Urine Protein NEGATIVE NEGATIVE Urine Glucose (UA) 3+ H NEGATIVE Urine Ketones 1+ H NEGATIVE Urine Nitrite NEGATIVE NEGATIVE Urine Bilirubin NEGATIVE NEGATIVE Urine Urobilinogen 0.2 < = 1.0 MG/DL Urine Leukocyte Esterase NEGATIVE NEGATIVE Urine RBC (Auto) NEGATIVE NEGATIVE Urine RBC NONE /HPF Urine WBC 0-2 /HPF Urine Squamous Epithelial Cells NONE /HPF Urine Crystals PRESENT H /LPF Urine Amorphous Sediment FEW EDWIGE URATES H /LPF Urine Bacteria NEGATIVE /HPF Urine Casts PRESENT /LPF Urine Hyaline Casts 10-25 H /LPF Urine Mucus MODERATE H /LPF Urine Culture Indicated NO Lactic Acid Level 1.56 0.50-2.00 MMOL/L Micro Results Microbiology 05/02/23 Blood Culture - Preliminary, Resulted No growth 05/02/23 Blood Culture - Preliminary, Resulted No growth My Orders Orders - KACY VAZQUEZ DOG BEAUTICIAN Cbc With Automated Diff (05/02/23 19:30) Comprehensive Metabolic Panel (05/02/23 19:30) Ed Iv/Invasive Line Start (05/02/23 19:30) Ns Iv 1000 Ml (Sodium Chloride 0.9%) (05/02/23 19:30) Manual Differential (05/02/23 19:15) Ns Iv 1000 Ml (Sodium Chloride 0.9%) (05/02/23 20:15) Blood Culture (05/02/23 20:15) Lactic Acid Analyzer (05/02/23 20:15) Ct Abdomen/Pelvis W (05/02/23 20:15) Ua Culture If Indicated (05/02/23 20:17) Iohexol Injection (Omnipaque 350 Mg/Ml 1 (05/02/23 20:30) Received Contrast (Hold Metformin- Contr (05/02/23 20:30) Sodium Chloride Flush (Catheter Flush Sy (05/02/23 20:30) Medications Given in ED Vital Signs/I&O 05/02/23 05/02/23 19:10 22:00 Temp 37.6 Pulse 96 91 Resp 16 12 B/P (MAP) 81/69 (73) 126/79 Pulse Ox 98 94 O2 Delivery Room Air Room Air Capillary Refill : Less Than 3 Seconds Blood Pressure Mean: 73 Progress Note : Progress Note VSS. CBC reviewed and marked elevation in WBC. Initial BP 90's, added BC and l actic. Lactic normal. Given 1 LR IVF. CMP unremarkable. CT consistent with gastritis and diarrheal state. No obstruction or ileus. States she felt much improved after IVF. Discharge POC reviewed and she is agreeable with plan. Diagnostic Imaging Diagonstic Imaging: CT Comments [facility], [place] NAME: BASHIR HUBBARD [facility] REC#: [id number] PT STATUS: REG ER : 1960 PHYSICIAN: KACY VAZQUEZ APRN ADMIT DATE: 05/02/23/ER Signed Date of Exam:05/02/23 CT ABDOMEN/PELVIS W PROCEDURE: CT abdomen and pelvis with contrast. TECHNIQUE: Multiple contiguous axial images were obtained through the abdomen and pelvis after administration of intravenous contrast. Auto Exposure Controls were utilized during the CT exam to meet ALARA standards for radiation dose reduction. All CT scans use one or more of the following dose optimizing techniques: automated exposure control, MA and/or KvP adjustment based on patient size and exam type or iterative reconstruction. INDICATION: 62-year-old female, abdominal tenderness, leukocytosis. Diarrhea the last couple of days. History of colon cancer. CORRELATION STUDY: None. FINDINGS: LOWER THORAX: Poststernotomy. Heart size upper limits of normal with scattered coronary artery calcification. Minimal hypoventilation of lung bases. No basilar infiltrate. LIVER: Unremarkable. GALLBLADDER: Question of very small polyp or potential gallstone. Gallbladder and biliary tree are otherwise unremarkable. SPLEEN: Unremarkable. PANCREAS: Unremarkable. ADRENAL GLANDS: Unremarkable. KIDNEYS: Normal configuration. No calcification or obstruction. ABDOMINAL AORTA: Mild wall calcification, nonaneurysmal. Inferior vena cava filter is present. Legs extend well beyond the luminal wall. No pathologically enlarged aortocaval lymph nodes. GASTROINTESTINAL TRACT: Stomach distended with moderate amount of fluid. Questionable wall thickening at the pylorus. A few mildly prominent fluid-filled loops of bowel in the lower abdomen and pelvis. No dilated bowel or transition to suggest obstruction. Colon is largely decompressed. There is some fluid at the distal colon. Prior appendectomy. There is also prior surgical change of the sigmoid colon with anastomotic suture line unremarkable. No abdominal ascites and/or free air. URINARY BLADDER: Unremarkable. REPRODUCTIVE: The uterus is slightly deviated towards the left, otherwise unremarkable. OSSEOUS STRUCTURES: Multifocal degenerative changes about the thoracic and lumbar spine. No acute bony abnormality or karla lytic lesion. OTHER: None. IMPRESSION: Distended stomach. A few mildly prominent fluid-filled loops of small bowel may reflect nonspecific gastritis/enteritis. Additionally, there is fluid in the distal colon compatible with diarrheal state. No gastrointestinal tract obstruction. Dictated by: Dictated on workstation # [id number] Dict: 05/02/232107 Trans: 05/02/232205 [facility] [id number] Interpreted by: BHAVNA CARDENAS DO Electronically signed by: BHAVNA CARDENAS DO 05/02/232205 Departure Impression Primary Impression: Gastritis Additional Impressions: Dehydration Diarrhea Disposition: 01 HOME, SELF-CARE Condition: Improved Departure-Patient Inst. Decision time for Depature: 21:46 Referrals: JAMES ARROYO DO (PCP) Primary Care Physician RANDALL ARROYO DNP (Family) Primary Care Physician Patient Instructions: Why Water Is Important to Health, Gastritis (DC) Add. Discharge Instructions: Plan: 1. Resume your omeprazole daily or you can sweet pickle maker Pepcid [id number] and start this. Take for the next 2 weeks. 2. Follow-up with your primary care provider within the next 1 to 2 weeks. 3. Make sure you are drinking plenty of fluids to keep your urine pale yellow. If you have continued diarrhea please make sure that you are using an electrolyte drink such as Gatorade electrolyte. 4. Return to the ER if you have any fever, abdominal pain, worsening diarrhea and weakness. 5. Return for any concerning symptoms. All discharge instructions reviewed with patient and/or family. Voiced understanding. KACY VAZQUEZ DOG BEAUTICIAN May 02, 2023 19:44
[2023-05-02 19:45] LABS: CALCIUM 10.3 MG/DL (8.5-10.1)
[2023-05-02 19:46] LABS: GLUCOSE 161 MG/DL (70-105); TOTAL PROTEIN 7.8 GM/DL (6.4-8.2)
[2023-05-02 19:47] LABS: CARBON DIOXIDE 21 MMOL/L (21-32)
[2023-05-02 19:48] LABS: BILIRUBIN,TOTAL 0.6 MG/DL (0.1-1.0)
[2023-05-02 19:49] LABS: ALKALINE PHOSPHATASE 80 U/L (40-136)
[2023-05-02 19:50] LABS: CREATININE SERUM 1.29 MG/DL (0.60-1.30); GFR ESTIMATED 48
[2023-05-02 19:51] LABS: BUN/CREATININE RATIO 17
[2023-05-02 19:53] LABS: ALANINE AMINOTRANSFERASE 26 U/L (0-55)
[2023-05-02 20:02] LABS: BAND NEUTROPHILS 16 %; BURR CELLS SLIGHT; ELLIPT/OVALOCYTES SLIGHT; EOSINOPHILS % (MANUAL) 2 %; LYMPHOCYTES % (MANUAL) 8 %; MONOCYTES % (MANUAL) 5 %; NEUTROPHILS % (MANUAL) 69 %; PLATELET CLUMPS OCCASIONAL; POIKILOCYTOSIS SLIGHT
[2023-05-02 20:04] LABS: PLATELET ESTIMATE HIGH NORMAL
[2023-05-02] MEDS ORDERED: NS IV 1000 ML 1,000 ML IV SCH (20:15)
[2023-05-02 20:22] LABS: BILIRUBIN,URINE NEGATIVE (NEGATIVE); CLARITY,URINE CLEAR; COLOR,URINE YELLOW; GLUCOSE, URINE (UA) 3+ (NEGATIVE); KETONES,URINE 1+ (NEGATIVE); LEUKOCYTE ESTERASE ,URINE NEGATIVE (NEGATIVE); NITRITE,URINE NEGATIVE (NEGATIVE); PROTEIN,URINE NEGATIVE (NEGATIVE)
[2023-05-02 20:29] LABS: AMORPHOUS SEDIMENT,UR FEW AMOR URATES /LPF; BACTERIA,URINE NEGATIVE /HPF; WBC,URINE 0-2 /HPF
[2023-05-02] MEDS ORDERED: CATHETER FLUSH 10 ML SYR IV PRN (20:30)
[2023-05-02] MEDS ORDERED: HOLD METFORMIN - RECEIVED CONTRAST 20 ML VIAL IV SCH (20:30)
[2023-05-02] MEDS ORDERED: IOHEXOL 350 MG/ML 100 ML (OMNIPAQUE 350) VIAL IV ONE (20:30)
--- NOTE | 2023-05-02 21:27 | Diagnostic Imaging Report ---
PROCEDURE: CT abdomen and pelvis with contrast. TECHNIQUE: Multiple contiguous axial images were obtained through the abdomen and pelvis after administration of intravenous contrast. Auto Exposure Controls were utilized during the CT exam to meet ALARA standards for radiation dose reduction. All CT scans use one or more of the following dose optimizing techniques: automated exposure control, MA and/or KvP adjustment based on patient size and exam type or iterative reconstruction. INDICATION: 62-year-old female, abdominal tenderness, leukocytosis. Diarrhea the last couple of days. History of colon cancer. CORRELATION STUDY: None. FINDINGS: LOWER THORAX: Poststernotomy. Heart size upper limits of normal with scattered coronary artery calcification. Minimal hypoventilation of lung bases. No basilar infiltrate. LIVER: Unremarkable. GALLBLADDER: Question of very small polyp or potential gallstone. Gallbladder and biliary tree are otherwise unremarkable. SPLEEN: Unremarkable. PANCREAS: Unremarkable. ADRENAL GLANDS: Unremarkable. KIDNEYS: Normal configuration. No calcification or obstruction. ABDOMINAL AORTA: Mild wall calcification, nonaneurysmal. Inferior vena cava filter is present. Legs extend well beyond the luminal wall. No pathologically enlarged aortocaval lymph nodes. GASTROINTESTINAL TRACT: Stomach distended with moderate amount of fluid. Questionable wall thickening at the pylorus. A few mildly prominent fluid-filled loops of bowel in the lower abdomen and pelvis. No dilated bowel or transition to suggest obstruction. Colon is largely decompressed. There is some fluid at the distal colon. Prior appendectomy. There is also prior surgical change of the sigmoid colon with anastomotic suture line unremarkable. No abdominal ascites and/or free air. URINARY BLADDER: Unremarkable. REPRODUCTIVE: The uterus is slightly deviated towards the left, otherwise unremarkable. OSSEOUS STRUCTURES: Multifocal degenerative changes about the thoracic and lumbar spine. No acute bony abnormality or karla lytic lesion. OTHER: None. IMPRESSION: Distended stomach. A few mildly prominent fluid-filled loops of small bowel may reflect nonspecific gastritis/enteritis. Additionally, there is fluid in the distal colon compatible with diarrheal state. No gastrointestinal tract obstruction. Dictated by: Dictated on workstation # [id number]
[2023-05-02 22:00] VITALS: BP 126/79
== END 2023-05-02 22:00 | disposition home or self-care (01) ==
LOC: EDUNIT# 19:04 → ER 19:06
DX: K29.70 Gastritis, unspecified, without bleeding (principal); E86.0 Dehydration; R19.7 Diarrhea, unspecified; G47.30 Sleep apnea, unspecified; Z99.89 Dependence on other enabling machines and devices
CPT/HCPCS: 36415; 74177; 80053; 81000; 83605; 85007; 85027; 87040

== ENCOUNTER → 2023-07-23 | Outpatient (CLI) | payer BC ==
--- NOTE | 2023-07-23 11:42 | Diagnostic Imaging Report ---
INDICATION: Routine screening. COMPARISON is made with prior mammograms from 04/02/2022 and 11/22/2020. 2-D and 3-D bilateral screening mammography was performed with CAD. Both breasts are heterogeneously dense, limiting the sensitivity of mammography. The parenchymal pattern is stable. No mass or malignant-appearing microcalcifications are seen. Axillae are unremarkable. There are occasional benign parenchymal and vascular calcifications bilaterally. IMPRESSION: BI-RADS Category 2 No mammographic features suspicious for malignancy are identified. ACR BI-RADS Category 2: Benign findings. Result letter will be mailed to the patient. Note: At least 10% of breast cancer is not imaged by mammography. Dictated by: Dictated on workstation # [id number]
== END ==
LOC: RAD 07:54
PROVIDERS: ATTEND Obstetrics & Gynecology
DX: Z12.31 Encounter for screening mammogram for malignant neoplasm of breast (principal)
CPT/HCPCS: 77063; 77067

== ENCOUNTER → 2023-07-24 | Outpatient (CLI) | payer BC ==
--- NOTE | 2023-07-24 09:44 | Diagnostic Imaging Report ---
PROCEDURE: CT abdomen and pelvis without contrast. TECHNIQUE: Multiple contiguous axial images were obtained through the abdomen and pelvis without the use of intravenous contrast. Auto Exposure Controls were utilized during the CT exam to meet ALARA standards for radiation dose reduction. INDICATION: Colon carcinoma, complaining of left-sided pain. Correlation is made with prior CT from 05/02/2023. Lung bases are clear. Liver and gallbladder are unremarkable. There is no biliary duct dilatation. The pancreas and spleen are unremarkable. No adrenal mass is detected. Kidneys are unremarkable. No calculi are seen. There is no hydronephrosis. The aorta is nonaneurysmal. There is a filter in the IVC. Bowel loops appear to be nonobstructed. No inflammatory changes are seen. There is no free fluid or fluid collection. Uterus and bladder are unremarkable. No definite abdominal or pelvic lymphadenopathy is detected. Bony structures are nonacute. IMPRESSION: Unremarkable noncontrast CT of the abdomen and pelvis. No acute feature is detected. Dictated by: Dictated on workstation # [id number]
== END ==
LOC: RAD 08:20
PROVIDERS: ATTEND Nurse Practitioner Family
DX: Z23 Encounter for immunization (principal); Z76.0 Encounter for issue of repeat prescription; Z01.89 Encounter for other specified special examinations; C18.9 Malignant neoplasm of colon, unspecified; M54.50 Low back pain, unspecified; R33.8 Other retention of urine; L30.9 Dermatitis, unspecified; R10.83 Colic; I12.9 Hypertensive chronic kidney disease with stage 1 through stage 4 chronic kidney disease, or unspecified chronic kidney disease; N18.31 Chronic kidney disease, stage 3a
CPT/HCPCS: 74176

== ENCOUNTER → 2023-07-28 | Outpatient (CLI) | payer BC ==
[2023-07-28 09:06] LABS: ALBUMIN 4.3 GM/DL (3.2-4.5); BILIRUBIN,TOTAL 0.6 MG/DL (0.1-1.0); CALCIUM 9.4 MG/DL (8.5-10.1); CREATININE SERUM 0.88 MG/DL (0.60-1.30); POTASSIUM 4.3 MMOL/L (3.6-5.0); TOTAL PROTEIN 7.1 GM/DL (6.4-8.2)
== END ==
LOC: LAB 08:19
PROVIDERS: ATTEND Internal Medicine Cardiovascular Disease
DX: I65.29 Occlusion and stenosis of unspecified carotid artery (principal); I10 Essential (primary) hypertension; E78.2 Mixed hyperlipidemia
CPT/HCPCS: 36415; 80053; 80061